=== PATIENT | male | born 1955 | race African-American/Black ===

== ENCOUNTER 2017-03-18 13:45 | Emergency (ER) | payer OTHER ==
--- NOTE | ~2017-03-18 | CT4 ---
[facility] A Service of [facility] RADIOLOGY TEXT RESULTS PATIENT: UMA HERRMANN LOCATION: [facility] : 57 UNIT #: [id number] AGE: [address]: Satinder Martin MD SEX: M ORDER DR: [id number] [address] [place], [place] [address] [id number] MR#: [id number] Acc #: [id number] NAME: UMA HERRMANN : 1955 SEX: M STUDY DATE/TIME: 03/18/2017 16:39 UNIT: [facility] ROOM: STUDY DESCRIPTION: CT Abd and Pelv Wo Cont Attending Physician: Satinder Martin M.D. Ordering Physician: Satinder Martin M.D. Primary Care Physician: Michelle Weinstein M.D. MEDICAL IMAGING REPORT This report is preliminary unless electronic signature is present EXAM CT abdomen and pelvis without contrast 03/18 HISTORY Abdominal pain since yesterday. COMPARISON STUDIES None. TECHNIQUE Axial 5 mm images were obtained through the abdomen and pelvis without IV or oral contrast. This CT exam was performed with one or more of the following radiation dose reduction techniques: automatic exposure control, adjustment of mA and/or kV according to patient size, and iterative reconstruction. FINDINGS The liver, gallbladder, spleen, pancreas, adrenal glands and kidneys are normal in appearance. There are no urinary stones. The aorta is normal in size. The appendix is normal. The bowel is normal. The bladder and prostate gland are normal. There are degenerative changes in the lumbar spine. IMPRESSION 1. Degenerative change throughout the lumbar spine. 2. No cause for the patient's abdomen pain is identified. 3. No urinary stones or appendicitis is identified. Dictated by... [facility] A Service [facility] RADIOLOGY TEXT RESULTS PATIENT: UMA HERRMANN LOCATION: [facility] : 57 UNIT #: [id number] AGE: [address]: Satinder Martin MD SEX: M ORDER DR: Nathaniel E. Eliecer, M.D. THIS IS AN ELECTRONICALLY VERIFIED REPORT Nathaniel Gonzáles M.D. at 03/19/2017 6:47 PM FEL/pcl TD: 03/18/2017 21:44 JOB #: [id number] MEDICAL IMAGING REPORT Page 1 of 1 COPY
--- NOTE | ~2017-03-18 | CR72 ---
[facility] A Service of [facility] RADIOLOGY TEXT RESULTS PATIENT: UMA HERRMANN LOCATION: [facility] : 57 UNIT #: [id number] AGE: [address]: Satinder Martin MD SEX: M ORDER DR: [id number] [facility] [address] [place] [address] [place], [place] [address] [id number] E MR#: [id number] Acc #: [id number] NAME: UMA HERRMANN : 1955 SEX: M STUDY DATE/TIME: 03/18/2017 16:28 UNIT: [facility] ROOM: STUDY DESCRIPTION: CR Chest Single View Portable Attending Physician: Satinder Martin M.D. Ordering Physician: Satinder Martin M.D. Primary Care Physician: Michelle Weinstein M.D. MEDICAL IMAGING REPORT This report is preliminary unless electronic signature is present EXAM AP chest radiograph 03/18/17 COMPARISON 11/09/2016 HISTORY SUPPLIED Fever, back pain and dizziness since yesterday FINDINGS An AP view is obtained. Cardiac size appears enlarged. There is a left upper lobe infiltrate which is new. CONCLUSION New left upper lobe infiltrate consistent with pneumonia. Dictated by... Zay Parikh M.D. THIS IS AN ELECTRONICALLY VERIFIED REPORT Zay Parikh M.D. at 03/21/2017 7:16 AM GERARD/lexie TD: 03/18/2017 21:33 JOB #: [id number] MEDICAL IMAGING REPORT Page 1 of 1 COPY
[~2017-03-18 13:45] MED LIST: ASPIRIN; AVANDIA; GLUCOPHAGE XR500 MG; GLUCOTROL; LISINOPRIL
[2017-03-18 14:29] LABS: URINE SOURCE CLEAN CATCH
[2017-03-18 14:41] LABS: URINE APPEARANCE CLEAR; URINE BILIRUBIN NEG (NEG); URINE BLOOD 2+ (NEG); URINE COLOR YELLOW; URINE GLUCOSE 250 MG/DL (NEG); URINE KETONE TRACE (NEG); URINE LEUKOCYTE ESTERASE 1+ (NEG); URINE NITRATE NEG (NEG); URINE PH 5.5 (5-8); URINE PROTEIN 2+ (NEG); URINE SPECIFIC GRAVITY 1.021 (1.003-1.035)
[2017-03-18 14:46] LABS: CULTURE INDICATED? YES; URINE BACTERIA AUWI NEG (NEGATIVE); URINE SQUAMOUS EPITHELIAL CELL OCC /[HPF]
[2017-03-18 14:50] LABS: INFLUENZA A NEG (NEG); INFLUENZA B NEG (NEG)
[2017-03-18 15:23] LABS: BASOPHIL# 0.1 X10e3 (0-0.3); BASOPHIL% 0.5 % (0-2.5); EOSINOPHIL% 0.1 % (0.0-7.0); HEMATOCRIT 38.3 % (38.0-50.0); HEMOGLOBIN 12.6 gm/dL (13.0-16.0); LYMPHOCYTE# 1.2 X10e3 (1.0-3.5); LYMPHOCYTE% 8.9 % (17.0-45.0); MEAN CELL VOLUME 87.2 FL (83-96); MEAN CORPUSCULAR HEMOGLOBIN 28.8 PG (28-34); MEAN PLATELET VOLUME 8.6 FL (6.5-11.5); MONOCYTE# 0.7 X10e3 (0-1.0); MONOCYTE% 5.6 % (3.0-12.0); NEUTROPHIL# 11.4 X10e3 (1.5-7.1); NEUTROPHIL% 84.9 % (40-75); PLATELET COUNT 213 X10e3 (140-420); RED BLOOD COUNT 4.39 X10e (3.90-5.60); RED CELL DISTRIBUTION WIDTH 14.4 % (11.0-15.5); WHITE BLOOD COUNT 13.4 X10e3 (4.0-10.5)
[2017-03-18 15:25] LABS: DIFF IND NO
[2017-03-18 15:44] LABS: ALBUMIN SERUM 3.8 g/dL (3.5-5.0); BUN/CREATININE RATIO 10.55; CALCIUM SERUM 8.5 mg/dL (8.4-10.2); CREATININE SERUM 1.8 mg/dL (0.6-1.4); GLOM FILT RATE Estimated 46.1 mL/min (>60); POTASSIUM 4.3 mmol/L (3.5-5.1); PROTEIN TOTAL SERUM 7.4 g/dL (6.0-8.3)
== END 2017-03-18 17:44 | disposition home or self-care (01) ==
LOC: CED 13:45
PROVIDERS: Emergency Medicine
DX: E11.65 Type 2 diabetes mellitus with hyperglycemia (principal); N28.9 Disorder of kidney and ureter, unspecified; E87.1 Hypo-osmolality and hyponatremia; J18.1 Lobar pneumonia, unspecified organism; K21.9 Gastro-esophageal reflux disease without esophagitis; J44.9 Chronic obstructive pulmonary disease, unspecified; E78.5 Hyperlipidemia, unspecified; I10 Essential (primary) hypertension; F17.210 Nicotine dependence, cigarettes, uncomplicated
CPT/HCPCS: 36415; 71010; 74176; 80053; 81003; 82947; 85025; 87086; 87804; 96365; 96375; 99284; J0696; J2270; J2405

== ENCOUNTER 2017-06-27 02:29 | Emergency (ER) | payer OTHER ==
[~2017-06-27] VITALS: Ht 190.5 cm; Wt 128.4 kg
--- NOTE | ~2017-06-27 | EKG ---
PATIENT: UMA HERRMANN UNIT #: [id number] Ventricular Rate: 72 BPM Atrial Rate: 72 BPM P-R Interval: 156 ms QRS Duration: 110 ms Q-T Interval: 424 ms QTC Calculation(Bezet): 464 ms P Commerce: 74 degrees Calculated R Commerce: -60 degrees Calculated T Commerce: 54 degrees Diagnosis Line: Normal sinus rhythm Diagnosis Line: Left anterior fascicular block Diagnosis Line: Abnormal ECG Diagnosis Line: No previous ECGs available Diagnosis Line: Confirmed by TYLER WARD MD ([id number]) on 06/27/2017 Diagnosis Line: 7:55:16 PM INTERPRETING MD: SYLVIA GARNER
== END 2017-06-27 05:04 | disposition home or self-care (01) ==
LOC: CED 02:29
DX: J44.1 Chronic obstructive pulmonary disease with (acute) exacerbation (principal); F17.200 Nicotine dependence, unspecified, uncomplicated; E11.8 Type 2 diabetes mellitus with unspecified complications
CPT/HCPCS: 93005; 94640; 99285